=== PATIENT | female | born 1975 | race Caucasian/White ===

== ENCOUNTER 2018-09-16 18:32 | Observation (INO) ==
--- NOTE | 2018-09-16 20:39 | Emergency Department Note ---
Disposition Clinical Impression: Intractable seizure disorder Disposition: Admitted As Inpatient Referrals: NONE,PCP [Primary Care Provider] - Time of Disposition: 20:39 General Adult HPI - General Chief complaint: ED Seizure Stated complaint: uncontrolled muscle movements? Time Seen by Provider: 09/16/18 19:15 Source: patient, family Limitations: altered mental status Nursing Notes Reviewed: Yes Vital Signs Reviewed: Yes - History of Present Illness HPI Narrative: Attestation note: Patient was seen with the emergency medicine resident/nurse practitioner/physician surgical assistant certified/transitional resident/medical student: Dr. SHEELA MONTAÑO. I was present for the significant portions of the performance and interpretation of procedures and EKGs. I have personally performed a face to face evaluation on this patient. I have reviewed and agree with history and physical examination patient management and disposition. 3-year-old female had a history of AVM with coiling ever since she has had seizures which is controlled with medication which she normally lifts her arm and shakes the family were so she has been doing that "all day" which is unusual she was seen at an outside facility I think [facility] was given Ativan and sent home. Patient arrives what appears to be postictal she supposed to have an MRI tomorrow. Patient will undergo laboratory testing a CT scan and patient will be admitted with neurologic consultation here for further evaluation and management of this seizure disorder. Pain Scale: 10 - Related Data Home Medications Medication Instructions Recorded Confirmed LevETIRAcetam [Keppra] 750 mg PO BID 09/05/15 08/18/18 Lexapro 20 mg PO QDPC 09/05/15 08/18/18 Butalbital/Acetaminophen 1 tab PO Q12H 10/02/17 08/18/18 Tizanidine HCl [Zanaflex] 1 cap PO HS 10/02/17 08/18/18 traZODone [TraZODone] 50 mg PO HS 10/02/17 08/18/18 LORazepam [Ativan] 1 mg PO DAILY PRN 08/04/18 08/18/18 Loratadine [Claritin] 10 mg PO DAILY 08/04/18 08/18/18 Allergies Allergy/AdvReac Type Severity Reaction Status Date / Time Amoxicillin Allergy Diarrhea Verified 08/18/18 15:49 acetaminophen [From NyQuil] AdvReac See Verified 08/18/18 15:49 Comments dextromethorphan AdvReac See Verified 08/18/18 15:49 [From NyQuil] Comments doxylamine [From NyQuil] AdvReac See Verified 08/18/18 15:49 Comments pseudoephedrine [From NyQuil] AdvReac See Verified 08/18/18 15:49 Comments IV dye Allergy Hives Uncoded 08/18/18 15:49 Past Medical History - Past Medical History Medical history: Reports: no medical history Surgical history: Reports: no surgical history Psychiatric history: Reports: no psych history FIELD [employer] RESEARCHER history: Reports: no FIELD [employer] RESEARCHER history - Social History Smoking Status: Current every day smoker Smokeless Tobacco Status: No Alcohol use: Reports: none Drug use: Reports: none Course Vital Signs Temperature 98.3 F 09/16/18 18:45 Pulse Rate 85 09/16/18 18:45 Respiratory Rate 16 09/16/18 18:45 Blood Pressure 109/71 09/16/18 18:45 O2 Sat by Pulse Oximetry 96 09/16/18 18:45 Temperature 98.3 F 09/16/18 18:45 Pulse Rate 85 09/16/18 18:45 Respiratory Rate 16 09/16/18 18:45 Blood Pressure 109/71 09/16/18 18:45 O2 Sat by Pulse Oximetry 96 09/16/18 18:45 Oxygen Delivery Oxygen Delivery Room Air
[2018-09-16 20:53] LABS: Basophils % 0.4 %; Eosinophils # 0.1 K/mcL (0.0-0.6); Eosinophils % 0.6 %; Hematocrit 39.9 % (35.3-44.9); Hemoglobin 12.6 g/dL (11.5-15.4); Immature Granulocytes % 0.4 % (0-4); Lymphocytes # 3.1 K/mcL (0.6-4.6); Lymphocytes % 37.3 %; Mean Corpuscular HGB Conc 31.6 g/dL (31.6-35.5); Mean Corpuscular Hemoglobin 26.5 pg (28.0-33.3); Mean Platelet Volume 9.5 fL (9.4-12.4); Monocytes # 0.3 K/mcL (0.0-1.3); Monocytes % 3.6 %; Neutrophils # 4.8 K/mcL (1.6-8.9); Platelet Count 249 K/mcL (140-400); Red Blood Count 4.75 M/mcL (3.82-4.97); Red Cell Distribution Width 14.2 % (11.5-14.5); Segmented Neutrophils % 57.7 %; White Blood Count 8.3 K/mcL (4.3-11.1)
[2018-09-16 20:54] LABS: Bilirubin,Urine Negative (Negative); Blood,Urine Negative (Negative); Clarity,Urine Clear (Clear); Color,Urine Yellow (Yellow); Glucose,Urine (UA) Normal (Normal); Ketones,Urine Negative (Negative); Leukocyte Esterase,Urine Negative (Negative); Nitrite,Urine Negative (Negative); PH,Urine 6.5 pH Units (5.0-8.0); Protein,Urine Negative (Neg-Trace); Specific Gravity,Urine 1.011 (1.010-1.025); Urobilinogen,Urine Normal (Normal)
[2018-09-16 21:12] LABS: BUN/Creatinine Ratio 4 (6-26); Blood Urea Nitrogen 4 mg/dL (6-20); Calcium 9.1 mg/dL (8.6-10.3); Carbon Dioxide 27 mEq/L (23-29); Chloride 110 mEq/L (98-107); Glucose 96 mg/dL (70-105); Osmolality,Calculated 287 (280-300); Potassium 3.5 mEq/L (3.5-5.1); Sodium 140 mEq/L (136-145); eGFR For African Americans > 60 (> 60); eGFR For Non-African Americans > 60 (> 60)
--- NOTE | 2018-09-16 22:20 | Emergency Department Note ---
Disposition Clinical Impression: Intractable seizure disorder Disposition: Admitted As Inpatient Condition: Fair Time of Disposition: 22:56 Seizure HPI - General Chief Complaint: ED Seizure Stated Complaint: uncontrolled muscle movements? Time Seen by Provider: 09/16/18 19:15 Source: patient, family Limitations: altered mental status - History of Present Illness HPI Narrative: 43-year-old female past medical history of atrial venous malformation repaired in [address] Restrepo at [facility] with long-standing seizure disorder presenting for one day of intractable focal seizures involving the head neck and right upper extremity. Patient's and [id number] are bedside states patient has had constant complex focal seizures throughout the day has been seen at [facility] where she was Keppra loaded and given Ativan and discharged home. Patient's family states that she continued to seize while at home and came here for further evaluation and management. The patient is sleeping upon my inspection family states that she has been postictal for approximately 20-30 minutes. Since arriving to the ER. Patient is alert and oriented to verbal stimuli however appears tired. There are no lateralizing signs, noncyanotic nondiaphoretic patient is no acute distress she is engaged conversation and answer questions appropriately. Pt Subjective Complaint: seizure Onset (ago): day(s) Witnessed: yes - by bystander Associated trauma secondary to event: No Seizure History: known seizure disorder Place: home Possible Precipitating Event: none Associated symptoms: Reports: weakness - Related Data Home Medications Medication Instructions Recorded Confirmed Tizanidine HCl [Zanaflex] 1 cap PO HS 10/02/17 09/16/18 traZODone [TraZODone] 50 mg PO HS 10/02/17 09/16/18 Loratadine [Claritin] 10 mg PO DAILY 08/04/18 09/16/18 Acetaminophen/Butalbital/Caffe 1 each PO Q12HR PRN 09/16/18 09/16/18 [Fioricet] Escitalopram [Lexapro] 20 mg PO DAILY 09/16/18 09/16/18 Klonopin PO BID 09/16/18 LevETIRAcetam [Keppra] 1,000 mg PO BID 09/16/18 09/16/18 Allergies Allergy/AdvReac Type Severity Reaction Status Date / Time Amoxicillin Allergy Diarrhea Verified 08/18/18 15:49 acetaminophen [From NyQuil] AdvReac See Verified 08/18/18 15:49 Comments dextromethorphan AdvReac See Verified 08/18/18 15:49 [From NyQuil] Comments doxylamine [From NyQuil] AdvReac See Verified 08/18/18 15:49 Comments pseudoephedrine [From NyQuil] AdvReac See Verified 08/18/18 15:49 Comments IV dye Allergy Hives Uncoded 08/18/18 15:49 Review of Systems: *See History of Present Illness for more detail Constitutional: Denies: fever, chills Cardiovascular: Denies: chest pain Respiratory: Denies: dyspnea, cough, hemoptysis Gastrointestinal: Denies: abdominal pain, nausea, vomiting, diarrhea, constipation, hematemesis, melena, hematochezia Genitourinary: Denies: hematuria Musculoskeletal: Denies: back pain, neck pain Neurological: Admits to headache, weakness, lightheadedness and dizziness. Denies: numbness, paresthesias, difficulty with ambulation. Endocrine: Admits: fatigue All systems ED: reviewed and negative except as stated. Review of Systems: As Per HPI Past Medical History - Past Medical History Medical history: Reports: no medical history Surgical history: Reports: no surgical history Psychiatric history: Reports: no psych history [employer]WORK ENGINEER history: Reports: no [employer] SAL[employer]WORK ENGINEER history - Social History Smoking Status: Current every day smoker Smokeless Tobacco Status: No Alcohol use: Reports: none Drug use: Reports: none Physical Exam Constitutional: Patient states to be in mild distress due to post ictal period. She is alert to verbal stimuli engageable to conversation, speech is fluid, answers questions appropriately Neuro: GCS 15, CN II-XII are grossly intact, reflexes 2/4 in bilateral upper and lower extremities, strength 5/5 in bilateral upper and lower extremities Head: Atraumatic, normocephalic Eyes: Pupils equal, round and reactive to light, external ocular muscles intact, no scleral icterus, no conjunctival injection, no nystagmus. Mouth: Mucous membranes are moist, oropharynx is without edema, erythema, or exudate. No tongue swelling, lip swelling, perioral cyanosis, drooling, or trismus. Neck: Trachea midline without deviation. Anterior neck is supple without swelling, no lymphadenopathy or thyromegaly noted. Chest: Symmetric chest wall rise Heart: Cardiac rhythm and rate are regular with S1 and S2 , no S3 or S4 appreciated, no murmurs, rubs, or clicks. Lungs: Lungs are clear to auscultation bilaterally, without accessory muscle use or prolonged expiratory phase. No wheezes or stridor appreciated. Abdomen: Abdomen is flat, soft to palpation, normal bowel sounds, no evidence of bruising, surgical incisions, or abnormal mass. No abdominal bruit auscultated. Non-distended, non-rigid, no organomegaly, no ascites appreciated. No pulsatile mass, no tenderness or guarding to palpation, no rebound Extremities: No pedal edema, joint swelling or erythema. Pulses/motor intact in all 4 extremities. Psychiatric exam: Patient displays a normal affect and mood for the environment. No overt signs of hallucination. Integumentary: warm, dry, intact, normal color. No rash, cyanosis, diaphoresis, erythema, or pallor - General Limitations: no limitations General appearance: alert, in no apparent distress Course Course Narrative: CT scan of the head and neck, basic labs [facility] - Reevaluation(s) Reevaluation #1: Spoke with Dr. Núñez from neurology who agrees with our plan to admit patient to hospitalist medicine service for further evaluation and management of breakthrough seizures. Neurology consulted and is following. No further rec ommendations at this time. Consultation greatly appreciated. Vital Signs Temperature 98.3 F 09/16/18 18:45 Pulse Rate 85 09/16/18 18:45 Respiratory Rate 16 09/16/18 18:45 Blood Pressure 109/71 09/16/18 18:45 O2 Sat by Pulse Oximetry 96 09/16/18 18:45 Temperature 98.3 F 09/16/18 21:00 Pulse Rate 85 09/16/18 21:00 Respiratory Rate 16 09/16/18 21:00 Blood Pressure 109/71 09/16/18 21:00 O2 Sat by Pulse Oximetry 96 09/16/18 21:00 Oxygen Delivery Oxygen Delivery Room Air Seizure - MDM Narrative Medical decision making narrative: Laboratory and imaging results show no acute pathology. Patient be admitted to hospital medicine service for their evaluation and management of seizures. - Lab Data Lab results reviewed: Yes I reviewed the patient's lab results. Result diagrams: 09/16/18 20:41 09/16/18 20:41 Lab Results 0709/16/18 09/16/18 Range/Units 20:35 20:41 20:41 WBC 8.3 (4.3-11.1) K/mcL RBC 4.75 (3.82-4.97) M/mcL Hgb 12.6 (11.5-15.4) g/dL Hct 39.9 (35.3-44.9) % MCV 84.0 (83.0-100.0) fL MCH 26.5 L (28.0-33.3) pg MCHC 31.6 (31.6-35.5) g/dL RDW 14.2 (11.5-14.5) % Plt Count 249 (140-400) K/mcL MPV 9.5 (9.4-12.4) fL Immature Gran % 0.4 (0-4) % Seg Neutrophils % 57.7 % Lymphocytes % 37.3 % Monocytes % 3.6 % Eosinophils % 0.6 % Basophils % 0.4 % Neutrophils # 4.8 (1.6-8.9) K/mcL Lymphocytes # 3.1 (0.6-4.6) K/mcL Monocytes # 0.3 (0.0-1.3) K/mcL Eosinophils # 0.1 (0.0-0.6) K/mcL Basophils # 0.0 (0.0-0.2) K/mcL Sodium 140 (136-145) mEq/L Potassium 3.5 (3.5-5.1) mEq/L Chloride 110 H (98-107) mEq/L Carbon Dioxide 27 (23-29) mEq/L BUN 4 L (6-20) mg/dL Creatinine 0.99 (0.60-1.20) mg/dL Est GFR ( Amer) > 60 (> 60) Est GFR (Non-Af Amer) > 60 (> 60) BUN/Creatinine Ratio 4 L (6-26) Glucose 96 (70-105) mg/dL Calculated Osmolality 287 (280-300) Calcium 9.1 (8.6-10.3) mg/dL Urine Color Yellow (Yellow) Urine Clarity Clear (Clear) Urine pH 6.5 (5.0-8.0) pH Units Ur Specific [place] 1.011 (1.010-1.025) Urine Protein Negative (Neg-Trace) mg/dL Urine Glucose (UA) Normal (Normal) mg/dL Urine Ketones Negative (Negative) mg/dL Urine Blood Negative (Negative) Urine Nitrite Negative (Negative) Urine Bilirubin Negative (Negative) Urine Urobilinogen Normal (Normal) mg/dL Ur Leukocyte Esterase Negative (Negative) Ur Culture Indicated? NO (NO) Levetiracetam (6 - 46) mcg/mL 09/16/18 Range/Units 20:41 WBC (4.3-11.1) K/mcL RBC (3.82-4.97) M/mcL Hgb (11.5-15.4) g/dL Hct (35.3-44.9) % MCV (83.0-100.0) fL MCH (28.0-33.3) pg MCHC (31.6-35.5) g/dL RDW (11.5-14.5) % Plt Count (140-400) K/mcL MPV (9.4-12.4) fL Immature Gran % (0-4) % Seg Neutrophils % % Lymphocytes % % Monocytes % % Eosinophils % % Basophils % % Neutrophils # (1.6-8.9) K/mcL Lymphocytes # (0.6-4.6) K/mcL Monocytes # (0.0-1.3) K/mcL Eosinophils # (0.0-0.6) K/mcL Basophils # (0.0-0.2) K/mcL Sodium (136-145) mEq/L Potassium (3.5-5.1) mEq/L Chloride (98-107) mEq/L Carbon Dioxide (23-29) mEq/L BUN (6-20) mg/dL Creatinine (0.60-1.20) mg/dL Est GFR ( Amer) (> 60) Est GFR (Non-Af Amer) (> 60) BUN/Creatinine Ratio (6-26) Glucose (70-105) mg/dL Calculated Osmolality (280-300) Calcium (8.6-10.3) mg/dL Urine Color (Yellow) Urine Clarity (Clear) Urine pH (5.0-8.0) pH Units Ur Specific [place] (1.010-1.025) Urine Protein (Neg-Trace) mg/dL Urine Glucose (UA) (Normal) mg/dL Urine Ketones (Negative) mg/dL Urine Blood (Negative) Urine Nitrite (Negative) Urine Bilirubin (Negative) Urine Urobilinogen (Normal) mg/dL Ur Leukocyte Esterase (Negative) Ur Culture Indicated? (NO) Levetiracetam 69 H (6 - 46) mcg/mL
[2018-09-17] MEDS ORDERED: Naloxone 0.4 MG/ML INJ IVP PRN (01:21)
[2018-09-17] MEDS ORDERED: *HR* LORazepam 2 MG/ML VIAL IVP PRN (01:21)
[2018-09-17] MEDS ORDERED: Acetaminophen/Butalbital/CaffeineTABLET PO PRN (01:28)
[2018-09-17] MEDS ORDERED: 0.9 % Sodium Chloride w KCl 20 MEQ/1,000 ML MLS IVC SCH (01:30)
--- NOTE | 2018-09-17 02:06 | Internal Med History&Physical ---
Date of Encounter: 09/17/18 Time of Encounter: 01:00 Internal Medicine - H&P: HPI Chief complaint: seizure Admitted From: Emergency Dept Plans for Post Hospital Care: Home History of present illness: Ms. Sandoval is a 43 year old female [facility] with complaints of several breakthrough seizures today. This apparently was witnessed by her family members. She was therefore brought to ER where she was noted to be postictal. Workup was unremarkable. Patient was therefore admitted to hospitalist service with neurology consultation. Upon my assessment of the patient, patient is alert and coherent. She does not appear to be postictal at this time. No family members are present at the bedside. Patient has a history of brain AVMs requiring neurosurgical intervention about 6 years ago. Since then, she was doing well until about 2 months ago when she developed seizures. She describes her seizures as focal seizures, and she denies any history of generalized tonic-clonic activity. However, she does not recall today's events and was reportedly somnolent and postictal. She did have a recent EEG just last week. She is due to have an outpatient MRI in the near future. She does have a history of anxiety and is on multiple anxiety medications including trazodone, which can possibly lower seizure threshold. She denies any fevers, chills, night sweats, coughing, shortness of breath, d ysuria, or abdominal pain. During my exam, I noted that she is pleasant, in no distress, and exhibits no neurologic deficits during the interview. However, during the exam and asking her to sit up, she developed some shaking of her head and torso. After lying her back down in her bed, this shaking stopped. I questioned her about the shaking activity, and she states "I get that after every seizure". Past Med Surg Social Fam HX - Past Medical History Attestation: Yes The following information was validated with the patient. Source: patient, old records reviewed Medical history: seizures Additional medical history: AVM Psychiatric history: no psych history - Past Surgical History Surgical History: cholecystectomy Additional surgical history: TUBAL LIGATION, , B/L BREAST BX, Neurosurgery for brain AVM - Social History Smoking Status: Current every day smoker Packs per day: < 1/2 Smokeless Tobacco Status: No Alcohol use: none Drug use: none Current living situation: Home, With Family Recent Out of Country Travel Within the Last 8 Weeks: No - Family History Mother Living Status: Age at : 61 Cause of : COPD Hx Family Cardiac Disorders: Yes (IA) Hx Family Respiratory Disorders: Yes (COPD) Father Living Status: Still Living Hx Family Musculoskeletal Disorders: Yes (BACK PAIN) Sister Living Status: Still Living Hx Family Endocrine Disorder: Yes (TYPE I DM) Internal Medicine - H&P: Meds Tizanidine HCl [Zanaflex] 1 cap PO HS 10/02/17 [History] traZODone [TraZODone] 50 mg PO HS 10/02/17 [History] Loratadine [Claritin] 10 mg PO DAILY 08/04/18 [History] Acetaminophen/Butalbital/Caffe [Fioricet] 1 each PO Q12HR PRN 09/16/18 [History] Escitalopram [Lexapro] 20 mg PO DAILY 09/16/18 [History] Klonopin PO BID 09/16/18 [History] LevETIRAcetam [Keppra] 1,000 mg PO BID 09/16/18 [History] Allergy/AdvReac Type Severity Reaction Status Date / Time Amoxicillin Allergy Diarrhea Verified 08/18/18 15:49 acetaminophen [From NyQuil] AdvReac See Verified 08/18/18 15:49 Comments dextromethorphan AdvReac See Verified 08/18/18 15:49 [From NyQuil] Comments doxylamine [From NyQuil] AdvReac See Verified 08/18/18 15:49 Comments pseudoephedrine [From NyQuil] AdvReac See Verified 08/18/18 15:49 Comments IV dye Allergy Hives Uncoded 08/18/18 15:49 - Constitutional Constitutional: no chills, no fever(s), no night sweats - EENT Eyes: no blurry vision, no change in vision Ears: no ear pain, no tinnitus Nose, mouth and throat: no nasal congestion, no sinus pressure, no sore throat - Cardiovascular Cardiovascular ROS IM: no chest pain, no dyspnea, no dyspnea on exertion, no orthopnea, no palpitations - Respiratory Respiratory: no cough, no chest congestion, no excessive phlegm production - Gastrointestinal Gastrointestinal: no abdominal pain, no cramping, no hematemesis, no hematochezia, no melena, no nausea, no vomiting - Genitourinary Genitourinary: no dysuria, no flank pain, no hematuria - Musculoskeletal Musculoskeletal ROS IM: no arthralgias, no back pain - Integumentary Integumentary IM: no rash, no jaundice - Neurological Neurological ROS: convulsions, headache(s) (migraine), no dizziness, no focal weakness, no frequent falls - Psychiatric Psychiatric: no anxiety, no depression - Endocrine Endocrine IM: no cold intolerance, no heat intolerance, no polydipsia, no polyphagia, no polyuria - Allergic/Immunologic Allergic/Immunologic: no wheezing, no GI upset with certain foods - Constitutional Vitals: Temp Pulse Resp BP Pulse Ox 98.1 F 67 17 100/64 97 09/17/18 00:16 09/17/18 00:16 09/17/18 00:16 09/17/18 00:16 09/17/18 00:46 General appearance: Present: cooperative, A&O X 3, pleasant, no acute distress Exam: see below - Head Head exam: Present: atraumatic, normal inspection - Eye Eye exam: Present: EOMI, PERRL. Absent: scleral icterus Pupils: Present: normal accommodation - ENT ENT exam: Present: mucous membranes dry, normal exam, normal oropharynx Additional comments: poor dentition - Neck Neck exam general surgery: Present: full ROM, supple, trachea midline. Absent: lymphadenopathy, tenderness, nuchal rigidity, thyromegaly - Respiratory Respiratory exam: Present: CTAB. Absent: chest wall tenderness, rales, rhonchi, wheezes - Cardiovascular Cardiovascular exam: Present: RRR, +S1, +S2. Absent: diastolic murmur, systolic murmur - GI/Abdominal GI/Abdominal exam: Present: normal bowel sounds, soft. Absent: guarding, hepatomegaly, mass, rebound, splenomegaly, tenderness - Extremities Exam Extremities exam: Present: full ROM, normal capillary refill - Back Exam Back exam: Absent: CVA tenderness (L), CVA tenderness (R) - Neurological Exam Neurological exam: Present: alert, CN II-XII intact, oriented X3, no focal deficits, strengths equal and symetr throughout. Absent: motor sensory deficit - Psychiatric Psychiatric exam: Present: normal affect, normal mood - Skin Skin exam: Present: dry, intact, warm Internal Med - H&P Results - Labs CBC & Chem 7: 09/16/18 20:41 09/16/18 20:41 Labs: Short CBC 09/16/18 Range/Units 20:41 WBC 8.3 (4.3-11.1) K/mcL Hgb 12.6 (11.5-15.4) g/dL Hct 39.9 (35.3-44.9) % Plt Count 249 (140-400) K/mcL Neutrophils # 4.8 (1.6-8.9) K/mcL BMP 09/16/18 20:41 Sodium 140 Potassium 3.5 Chloride 110 H Carbon Dioxide 27 BUN 4 L Creatinine 0.99 Glucose 96 Calcium 9.1 Urine 09/16/18 Range/Units 20:35 Urine Color Yellow (Yellow) Urine Clarity Clear (Clear) Urine pH 6.5 (5.0-8.0) pH Units Ur Specific [place] 1.011 (1.010-1.025) Urine Protein Negative (Neg-Trace) mg/dL Urine Glucose (UA) Normal (Normal) mg/dL - Impressions ITS Impressions Head CT 09/16/18 20:08 IMPRESSION: No acute intracranial abnormality. 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 D/ / Conrad Anthony MD / Conrad Anthony MD Interpreting Provider: Conrad Anthony MD - Diagnostic Studies CT scan - head Status: image reviewed by me (encephalomalacia) - Assessment and Plan (1) Intractable seizure disorder Current Visit: Yes Status: Acute Assessment and plan: 1. Continue home dose of Keppra. 2. Seizure precautions. 3. Ativan IV ordered PRN for seizure activity. 4. Consult Neurology. 5. Order MRI brain. 6. If above negative, patient may need psychiatry consult given her history of anxiety/depression (2) Anxiety Current Visit: Yes Status: Chronic Assessment and plan: 1. Continue home meds as appropriate. 2 Hold trazadone as this may lowe seizure threshold. 3. May need psychiatry consultation to assist with medication changes. (3) AVM (arteriovenous malformation) brain Current Visit: Yes Status: Chronic Assessment and plan: 1. MRI ordered to assess intracranial anatomy. 2. S/P neurosurgery 6 years ago. (4) DVT prophylaxis Current Visit: Yes Status: Acute Assessment and plan: . Heparin SQ.
[2018-09-17] MEDS: levETIRAcetam 250 MG TABLET PO SCH ×3 (02:10→20:40)
[2018-09-17 04:19] LABS: Basophils % 0.4 %; Eosinophils # 0.1 K/mcL (0.0-0.6); Eosinophils % 0.9 %; Hematocrit 35.7 % (35.3-44.9); Hemoglobin 11.3 g/dL (11.5-15.4); Immature Granulocytes % 0.1 % (0-4); Lymphocytes # 2.7 K/mcL (0.6-4.6); Lymphocytes % 40.9 %; Mean Corpuscular HGB Conc 31.7 g/dL (31.6-35.5); Mean Corpuscular Hemoglobin 26.7 pg (28.0-33.3); Mean Corpuscular Volume 84.2 fL (83.0-100.0); Mean Platelet Volume 9.7 fL (9.4-12.4); Monocytes # 0.4 K/mcL (0.0-1.3); Monocytes % 5.8 %; Neutrophils # 3.5 K/mcL (1.6-8.9); Platelet Count 217 K/mcL (140-400); Red Blood Count 4.24 M/mcL (3.82-4.97); Red Cell Distribution Width 14.3 % (11.5-14.5); Segmented Neutrophils % 51.9 %; White Blood Count 6.7 K/mcL (4.3-11.1)
[2018-09-17 04:29] LABS: INR 1.2
[2018-09-17 04:31] LABS: Activated Partial Thrombo Time 31.5 Seconds (26.0-36.0)
[2018-09-17 04:41] LABS: Alanine Aminotransferase 7 Units/L (7-52); Albumin 3.6 g/dL (3.5-5.7); Albumin/Globulin Ratio 1.6 (1.1-2.2); Alkaline Phosphatase 69 Units/L (34-104); Aspartate Amino Transferase 11 Units/L (13-39); BUN/Creatinine Ratio 7 (6-26); Bilirubin,Total 0.4 mg/dL (0.3-1.0); Blood Urea Nitrogen 6 mg/dL (6-20); Calcium 8.5 mg/dL (8.6-10.3); Carbon Dioxide 25 mEq/L (23-29); Chloride 111 mEq/L (98-107); Globulin 2.2 g/dL (2.4-3.5); Glucose 87 mg/dL (70-105); Magnesium 1.7 mg/dL (1.6-2.6); Osmolality,Calculated 287 (280-300); Potassium 3.4 mEq/L (3.5-5.1); Sodium 140 mEq/L (136-145); Total Protein 5.8 g/dL (6.4-8.9); eGFR For African Americans > 60 (> 60); eGFR For Non-African Americans > 60 (> 60)
[2018-09-17] MEDS: *HR* Heparin 5,000 UNIT/ML VIAL SQ SCH ×2 (06:29→18:24)
--- NOTE | 2018-09-17 09:24 | Neurology - Consult Note ---
<Manuel Rowley - Last Filed: 09/17/18 09:15> Date of Encounter: 09/17/18 Time of Encounter: 09:15 Assessment and Plan (1) Intractable seizure disorder Current Visit: Yes Status: Acute Neurology has been consulted with concern for intractable seizure disorder The patient has been having a 2 month history of head tremors as well as right a rm and leg tremors which have been getting progressively worse History significant for AVM which she has had neurosurgical intervention approximately 6 years ago. Has been seizure-free since intervention until 2 months ago Was recently seen in the office by Dr. Kebede in the clinic to evaluate for stiffness and tightness of the right side of the body- EEG completed did not reveal seizure activity She has had multiple ED visits for the same Today she the head tremors and rt arm/leg tremors persist. Otherwise, she has a non-focal exam Keppra level was supratherapeutic at 69; no need to change Her dose at this time continue at 1000 mg by mouth twice a day Etiology of these events are unclear; we are recommending transfer to [facility] to the EMU unit for long-term monitoring Neurology will continue to f/u with patient while she remains at [facility] Otherwise c/w medical and supportive care Agree with seizure precautions and PRN ativan History of Present Illness Chief complaint: Seizures;? Tremors HPI: Ms. Sandoval is a 43 year old female with a PMH of AVM and seizures. Neurology has been consulted to evaluate for breakthrough seizures. The patient presented to the ED with concerns for as she states "jerking and muscle tightening of my head and right arm and leg ". She denies any aggravating or alleviating factors. She reports that this is been ongoing for approximately 2 months and getting worse. She notes that she has a history of AVMs requiring neurosurgery approximately 6 years ago. She has been stable since surgery and has not had any seizure activity until approximately 2 months ago. Currently she is on 1000 mg of by mouth Keppra twice a day and reports that this has been helping up until this point. She was seen on 09/15/[address] Kebede in the clinic and had a recent EEG which did not identify any epileptiform activity. Currently, she states that with the jerking occurs she is having blurry vision and begins to feel weak on the right side of her body. However, she denies any paresthesias, dysphagia, dysarthria, headaches, head or neck pain, fevers, chills, disequilibrium, ataxia, chest pain or palpitations. The chemistry panel was reviewed and reveals a mild hypokalemia with a serum K of 3.4, otherwise no abnormalities. The CBC reveals a mild anemia with a HGB of 11.3. UA is clear. Keppra level is high at 69. Her head CT was negative for an acute intracranial abnormality. Past Med Surg Social Fam HX - Past Medical History Medical history: seizures Additional medical history: AVM Psychiatric history: no psych history - Past Surgical History Surgical History: cholecystectomy Additional surgical history: TUBAL LIGATION, , B/L BREAST BX, Neurosurgery for brain AVM - Social History Smoking Status: Current every day smoker Packs per day: < 1/2 Smokeless Tobacco Status: No Alcohol use: none Drug use: none - Family History Mother Living Status: Age at : 61 Cause of : COPD Hx Family Cardiac Disorders: Yes (SC) Hx Family Respiratory Disorders: Yes (COPD) Father Living Status: Still Living Hx Family Musculoskeletal Disorders: Yes (BACK PAIN) Sister Living Status: Still Living Hx Family Endocrine Disorder: Yes (TYPE I DM) Medications and Allergies Tizanidine HCl [Zanaflex] 1 cap PO HS 10/02/17 [History] Loratadine [Claritin] 10 mg PO DAILY 08/04/18 [History] Acetaminophen/Butalbital/Caffe [Fioricet] 1 each PO Q12HR PRN 09/16/18 [History] Escitalopram [Lexapro] 20 mg PO DAILY 09/16/18 [History] Klonopin PO BID 09/16/18 [History] LevETIRAcetam [Keppra] 1,000 mg PO BID 09/16/18 [History] clonazePAM [Klonopin] 0.5 mg PO BID tablet 09/17/18 [Rx] Allergy/AdvReac Type Severity Reaction Status Date / Time Amoxicillin Allergy Diarrhea Verified 08/18/18 15:49 acetaminophen [From NyQuil] AdvReac See Verified 08/18/18 15:49 Comments dextromethorphan AdvReac See Verified 08/18/18 15:49 [From NyQuil] Comments doxylamine [From NyQuil] AdvReac See Verified 08/18/18 15:49 Comments pseudoephedrine [From NyQuil] AdvReac See Verified 08/18/18 15:49 Comments IV dye Allergy Hives Uncoded 08/18/18 15:49 All Systems: The remainder of the systems were reviewed and are negative Review of Systems: REVIEW OF SYSTEMS GENERAL: Negative for any nausea, vomiting, fevers, chills NEUROLOGIC: Negative for facial asymmetry, dysphagia, dysarthria, hemiparesis, hemisensory deficits, vertigo, ataxia, paralysis, tingling, numbness, Positive- unilateral weakness of right arm and leg, reportin increasing seizure like activity and occasional blurred vision CARDIAC: Negative for any chest pain, dyspnea, peripheral edema or palpitations - denies urinary incontinence ENDOCRINE: negative Thyroid trouble, heat/cold intolerance, excessive sweating MUSCULOSKELETAL: positive - diminished strength of right arm and leg with a decreased activity tolerance d/t weakness Physical Examination - Vital Signs Vital Signs: Initial Vital Signs Temp Pulse Resp BP Pulse Ox 98.3 F 85 16 109/71 96 09/16/18 18:45 09/16/18 18:45 09/16/18 18:45 09/16/18 18:45 09/16/18 18:45 - Exam Exam: Examination: General Examination: *CONSTITUTIONAL: Alert and oriented x3, no acute distress *GENERAL APPEARANCE OF PATIENT appears healthy and well groomed *EYES: pupils equal, round, reactive to light and accommodation, conjunctiva clear without masses or ulcerations, fundi normal. *CARDIOVASCULAR: RRR, no peripheral edema, distal temperature normal, dorsalis pedis pulses normal. Refer to vital signs * MUSCULOSKELETAL: *GAIT AND STATION: normal, with normal Romberg testing, no abnormalities such as broad base gait or spasticity *ASSESSMENT OF MUSCLE STRENGTH IN THE UPPER AND LOWER EXTREMITIES bilateral deltoid, bicep, tricep, fish hatchery man strength, hip flexors ,anterior tibialis, dorsoflexion of the foot 5/5 *MUSCLE TONE IN THE UPPER AND LOWER EXTREMITIES normal without flaccid or rigid tone. Appears to have a yes she has had tremor and intermittent tremors in the right arm and leg which dissipate with ejection Neurological: *ORIENTATION to person, situation, time and place *LANGUAGE AND FUNCTION no significant aphasia or dysarthia was noted. *ATTENTION AND CONCENTRATION are normal *LANGUAGE FUNCTION no significant aphasia or dysarthia was noted. *FUND OF KNOWLEDGE aware of current events, past history, vocabulary *MENTAL attention span and concentration normal. *CN II optic fundi were normal, no papilledema noted. *CN III,IV, PERRLA extraocular eye movements were full, no nystagmus and no ptosis noted. *CN V shows normal sensation and jaw opens symmetrically. *CN VII shows normal facial movement symmetrically, upper and lower bilaterally. *CN VIII shows no significant hearing loss on exam *CN IX-Xpalate elevated symmetrically *CN XI normal strength in the sternocleidomastoid muscles, symmetrical shoulder shrugging. *CN XII tongue protruded in the midline, with normal strength and movement. *SENSORY EXAMINATION light touch intact *REFLEXES: deep tendon reflexes were normal and symmetrical , grade 2/4 diffusely, no pathological reflexes were noted. *CEREBELLAR TESTING normal finger to nose, heel/knee/mcpherson *PAIN LEVEL 0/10 Results - Laboratory Findings CBC and BMP: 09/17/18 03:27 09/17/18 03:27 Abnormal lab findings: Abnormal lab results Hgb 11.3 g/dL (11.5-15.4) L 09/17/18 03:27 MCH 26.7 pg (28.0-33.3) L 09/17/18 03:27 PT 14.0 Seconds (9.4-12.1) H 09/17/18 03:27 Potassium 3.4 mEq/L (3.5-5.1) L 09/17/18 03:27 Chloride 111 mEq/L (98-107) H 09/17/18 03:27 BUN 4 mg/dL (6-20) L 09/16/18 20:41 BUN/Creatinine Ratio 4 (6-26) L 09/16/18 20:41 Calcium 8.5 mg/dL (8.6-10.3) L 09/17/18 03:27 AST 11 Units/L (13-39) L 09/17/18 03:27 Serum Total Protein 5.8 g/dL (6.4-8.9) L 09/17/18 03:27 Globulin 2.2 g/dL (2.4-3.5) L 09/17/18 03:27 Levetiracetam 69 mcg/mL (6-46) H 09/16/18 20:41 - Diagnostic Findings Additional findings: CT/CT head/brain wo con IMPRESSION: No acute intracranial abnormality. 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 Consult Discharge Plan - Plan Referrals: Jose Kebede MD [Partnered Physician] - NONE,PCP [Primary Care Provider] - <Mike Núñez - Last Filed: 09/17/18 18:49> Date of Encounter: 09/17/18 Assessment and Plan (1) Intractable seizure disorder Current Visit: Yes Status: Acute I have personally performed a [id number] assessment of the patient and have reviewed the PA/FAMILY [employer] SOCIAL WORK PROFESSOR note. My impressions are as follows: The case was discussed with the SPECIAL PROCEDURES NURSE. I agree with his assessment and plan as stated above. Ultimately however, I am highly suspicious that these episodes are nonepileptic events. This is especially true since the events have not responded to Keppra which is a very potent antiepileptic, however seem to respond better to benzodiazepines. Also the semiology of these events does not seem to be consistent with a partial seizure. Her EEG has been normal, and there have been no changes in the MRI to which we might attribute any new area of seizure focus. The encephalomalacia is localized in the left occipital lobe, which would be expected to cause visual phenomena if this were indeed seizure activity. I would not expect motor spasms and jerking emanating from the occipital lobe. Ultimately I agree that transfer to an EMU was not necessary. When she was discharged from [facility] she was given a prescription of Ativan 20 pills. I suggested that she takes him 1 daily to see whether or not this further stops these events. This would be proven my opinion that the events or not likely epileptic but of some functional origin. Patient consist however that things are fine at home and she has no known source of anxiety or stress. She should follow up with Dr. Kebede about 2 weeks or so after discharge. He may discharge her at your discretion from a neurologic perspective. History of Present Illness HPI: Chart was reviewed, the patient was seen and examined independently. The case was discussed with the SPECIAL PROCEDURES NURSE as well as with Dr. Kebede. Patient states that she began experiencing spasms and "drawing" of the right face and right upper extremity about 2 months or so ago. She experiences right facial jerking and sometimes prolonged spasms of the right face. Spasms are variable in duration. Her was present states that they have lasted up to 1 hour. Although she does experience migraine headaches headache is not a part of the spasm. She denies any history of right Rivera's palsy. She denies any jerking of the right leg during the episodes. She does not seem to have altered level of consciousness during the episodes. She has been seen at various local emergency departments due to the symptoms. Most recently she was seen at [facility] where she was given Ativan and was discharged with a prescription for Ativan. She has not had any of the jerks today. She states that sometimes the jerks were occur for 2-3 days in succession multiple times per day and then they may go into remission for 3 days or so. Since the onset of the jerking episodes, she is never gone for more than 3 days without an episode. Of special note is that she is on Keppra 1000 mg twice a day and her Keppra level is supratherapeutic at 69. However the Ativan is what seems to have helped the episodes. She is also on Lexapro which was just increased a few days ago to 30 mg daily. And she is also on clonazepam. She has a known history of a left occipital AVM which was surgically removed in 2012. She denies any stress or domestic strife. She is also had an EEG completed as an outpatient and was interpreted as negative. Recent MRI only reveals the left occipital lobe encephalomalacia as a result of the surgical procedure. He reports a history of epilepsy as a child however other medication was apparently stopped at the age of 7. She has not had other episodes of seizure activity in the interim up until 2 months ago. All Systems: The remainder of the systems were reviewed and are negative Review of Systems: The balance of the systems review is negative. Physical Examination - Vital Signs Vital Signs: Initial Vital Signs Temp Pulse Resp BP Pulse Ox 98.3 F 85 16 109/71 96 09/16/18 18:45 09/16/18 18:45 09/16/18 18:45 09/16/18 18:45 09/16/18 18:45 - Exam Exam: I have personally performed a [id number] assessment of the patient and have reviewed the PA/FAMILY [employer]ELF[employer] SOCIAL WORK PROFESSOR note. My impressions are as follows: I agree with the neurologic examination as documented above. Results - Laboratory Findings CBC and BMP: 09/17/18 03:27 09/17/18 03:27 Abnormal lab findings: Abnormal lab results Hgb 11.3 g/dL (11.5-15.4) L 09/17/18 03:27 MCH 26.7 pg (28.0-33.3) L 09/17/18 03:27 PT 14.0 Seconds (9.4-12.1) H 09/17/18 03:27 Potassium 3.4 mEq/L (3.5-5.1) L 09/17/18 03:27 Chloride 111 mEq/L (98-107) H 09/17/18 03:27 BUN 4 mg/dL (6-20) L 09/16/18 20:41 BUN/Creatinine Ratio 4 (6-26) L 09/16/18 20:41 POC Glucose 122 mg/dL (70-99) H 09/17/18 15:33 Calcium 8.5 mg/dL (8.6-10.3) L 09/17/18 03:27 AST 11 Units/L (13-39) L 09/17/18 03:27 Serum Total Protein 5.8 g/dL (6.4-8.9) L 09/17/18 03:27 Globulin 2.2 g/dL (2.4-3.5) L 09/17/18 03:27 Levetiracetam 69 mcg/mL (6-46) H 09/16/18 20:41
[2018-09-17] MEDS ORDERED: Gadolinium Contrast Agent (WT Based) IV PRN ×2 (09:26→10:49)
[2018-09-17] MEDS: Loratadine 10 MG TABLET PO SCH (09:31)
[2018-09-17] MEDS: clonazePAM 0.5 MG TABLET PO SCH ×2 (12:42→20:40)
--- NOTE | 2018-09-17 13:43 | Discharge Summary ---
<Laura Dominguez I - Last Filed: 09/17/18 14:20> Orders not resulted at time of discharge: Pending orders 09/17/18 01:21 ECG 12 lead ECG [ECG] Routine 09/17/18 10:49 MR head wo/w con [MR] Stat Date of Encounter: 09/17/18 Time of Encounter: 09:35 - Discharge Diagnosis (1) Intractable seizure disorder Priority: Primary Status: Acute (2) AVM (arteriovenous malformation) brain Priority: Secondary Status: Chronic (3) Anxiety Priority: Secondary Status: Chronic Hospital course: Ms. Sandoval is a 43 year old female with pmh of AVM repaired in 2012 presented to ER yesterday after seizure attack that was focal and involve head neck and upper extrimity , it last for 5 mins as she states it was "jerking and muscle tightening of my head and right arm and leg ". She denies any aggravating or alleviating factors. She had post ictal confusion and blurry vision and weakness . Patient has a history of brain AVMs requiring neurosurgical intervention about 6 years ago. Since then, she was doing well until about 2 months ago when she developed seizures. She describes her seizures as focal seizures, and she denies any history of generalized tonic-clonic activity.Today she had again tremors of head and rt arm/leg tremors persist. Otherwise, she has a non-focal exam. She denies any fevers, chills, night sweats, coughing, shortness of breath, dysuria, or abdominal pain. head CT and brain MRI was negative for any acute findings , The chemistry panel was reviewed and reveals a mild hypokalemia with a serum K of 3.4, otherwise no abnormalities. The CBC reveals a mild anemia with a HGB of 11.3. UA is clear. .Etiology of these events are unclear, and Neurology is recommending transfer to [facility] to the EMU unit for long-term monitoring . patient has new clonazepam 0.5 mg PO BID . patient is stable and understand the treatment and plan . - Time Spent with Patient Total time spent providing and/or coordinating discharge services: - Discharge Medications Prescriptions: New clonazePAM [Klonopin] 0.5 mg PO BID tablet Continued Tizanidine HCl [Zanaflex] 1 cap PO HS Loratadine [Claritin] 10 mg PO DAILY Acetaminophen/Butalbital/Caffe [Fioricet] 1 each PO Q12HR PRN PRN Reason: Headache LevETIRAcetam [Keppra] 1,000 mg PO BID Escitalopram [Lexapro] 20 mg PO DAILY Klonopin PO BID Discontinued traZODone [TraZODone] 50 mg PO HS Home Medications: Tizanidine HCl [Zanaflex] 1 cap PO HS 10/02/17 [History] Loratadine [Claritin] 10 mg PO DAILY 08/04/18 [History] Acetaminophen/Butalbital/Caffe [Fioricet] 1 each PO Q12HR PRN 09/16/18 [History] Escitalopram [Lexapro] 20 mg PO DAILY 09/16/18 [History] Klonopin PO BID 09/16/18 [History] LevETIRAcetam [Keppra] 1,000 mg PO BID 09/16/18 [History] clonazePAM [Klonopin] 0.5 mg PO BID tablet 09/17/18 [Rx] Allergies/Adverse Reactions: Allergy/AdvReac Type Severity Reaction Status Date / Time Amoxicillin Allergy Diarrhea Verified 08/18/18 15:49 acetaminophen [From NyQuil] AdvReac See Verified 08/18/18 15:49 Comments dextromethorphan AdvReac See Verified 08/18/18 15:49 [From NyQuil] Comments doxylamine [From NyQuil] AdvReac See Verified 08/18/18 15:49 Comments pseudoephedrine [From NyQuil] AdvReac See Verified 08/18/18 15:49 Comments IV dye Allergy Hives Uncoded 08/18/18 15:49 Date of admission: 09/16/18 22:42 Primary care physician: PCP NONE Consults: 09/16/18 22:47 Consult to Neurology [CONS] Stat Consulting Provider: Neurology [facility] Reason for Consult: Seizure Time Notified: 22:47 Call Completed: Yes Anticipated date of discharge: 09/17/18 - Constitutional Vitals: Temp Pulse Resp BP Pulse Ox 98.2 F 87 16 97/69 97 09/17/18 11:13 09/17/18 11:13 09/17/18 11:13 09/17/18 11:13 09/17/18 03:41 General appearance: Present: cooperative, A&O X 3, pleasant, no acute distress Exam: . - Head Head exam: Present: atraumatic, normal inspection - Eye Eye exam: Present: EOMI, normal appearance, PERRL - Neck Neck exam general surgery: Present: full ROM, normal inspection, trachea midline - Respiratory Respiratory exam: Present: CTAB - Cardiovascular Cardiovascular exam: Present: RRR, +S1, +S2 - GI/Abdominal GI/Abdominal exam: Present: normal bowel sounds, soft - Extremities Exam Extremities exam: Present: full ROM, normal inspection - Neurological Exam Neurological exam: Present: alert, oriented X3, no focal deficits - Psychiatric Psychiatric exam: Present: normal affect, normal mood - Patient Status Disposition: Transfer Critical Access Hosp Condition: Fair Functional capacity at discharge: independent ambulation Overall status at discharge: patient is not back to baseline - Discharge Instructions Follow Up With: NONE,PCP [Primary Care Provider] - Jose Kebede MD [Partnered Physician] - - Diet and Activity Activity: as per physical therapy, increase activity as tolerated Diet: advance to your usual diet <Maki Ceja - Last Filed: 09/17/18 14:52> - NOTES TO OUTPATIENT PROVIDER Notes to Outpatient Provider: transferred to [place] for continuous EEG monitoring with breakthrough seizures Orders not resulted at time of discharge: Pending orders 09/17/18 01:21 ECG 12 lead ECG [ECG] Routine Date of Encounter: 09/17/18 - Discharge Diagnosis (1) AVM (arteriovenous malformation) brain Priority: Secondary Status: Chronic (2) Intractable seizure disorder Priority: Primary Status: Acute (3) Anxiety Priority: Secondary Status: Chronic (4) DVT prophylaxis Priority: Secondary Status: Acute Hospital course: Ms. Sandoval is a 43 year old female - Time Spent with Patient Total time spent providing and/or coordinating discharge services: Date of admission: 09/16/18 22:42 Primary care physician: PCP NONE Consults: 09/16/18 22:47 Consult to Neurology [CONS] Stat Consulting Provider: Neurology [facility] Reason for Consult: Seizure Time Notified: 22:47 Call Completed: Yes Discharging clinician: Laura Dominguez - Constitutional Vitals: Temp Pulse Resp BP Pulse Ox 98.2 F 87 16 97/69 97 09/17/18 11:13 07/24/19 11:13 09/17/18 11:13 09/17/18 11:13 09/17/18 03:41 - Patient Status Functional capacity at discharge: independent ambulation Overall status at discharge: patient is not back to baseline - Diet and Activity Activity: as per physical therapy, increase activity as tolerated Diet: advance to your usual diet - Attending Attestation I examined this patient and my medical decision-making was reviewed with the Resident Physician Dr Dominguez. I agree with the documented findings, disposition and treatment plan as described except to the extent set forth below. Ms Sandoval was being observed for breakthrough seizures with known hx of seizures and brain AVM s/p surgery in remote past. She has had 2 month history of head tremors as well as right arm and leg tremors which have been getting progressively worse. she had been seizure free since surgical intervention until two months ago. She is following with Neurology at [facility] Dr Kebede. She was admitted with seziure like activity at home. MRI here negative. Neurology recommendation for transfer to acute care access hospital with continuous EEG monitoring. awake, cont head and ext tremor. She admits to headache and blurred vision. She notes these sxs usually resolve after hours post ictally and this duration of sxs is abnormal for her. She feels at her baseline level of alertness. She is agreeable to Neuro recommendations. gen- alert, awake,appears stated age eyes- pupils equal round cv- reg rate and rhythm, normal s1,s2, no murmurs appreciated lungs- ctabl, no wheezing, rhonchi or crackles, normal resp effort on room air abd- soft, non tender, non distended, + bs neuro- AAOx3, CN grossly intact, resting head/neck and UEs tremor, strength 5/5 throughout, sensation intact to light touch throughout Breakthrough Seziures with known seizure d/o and hx AVM s/p neurosurg intervention approx 6 years ago- CT head no acute findings, MRI head no acute findings, continued on home keppra dosing, holding trazadone, cont home low dose klonopin, appreciate Neurology input and facilitate transfer to OSH w continuous EEG monitoring Anxiety- cont home celexa and klopopin (klonopin is NOT a new med) time spent on dc 50 min
--- NOTE | 2018-09-17 15:45 | Electrocardiograph Report ---
[address] [address] Test Date: 2018-09-17 Pat Name: Stew Sandoval Department: 111 Room: [facility] Gender: F Instruction Dean: : 1975 Requested By: Dalton Lee Order Number: [id number] Reading MD: Adonay Hernandez Measurements Intervals [place] Rate: 69 P: 66 OR: 192 QRS: 53 QRSD: 81 T: 38 QT: 383 QTc: 401 Interpretive Statements SINUS RHYTHM WITH SINUS ARRHYTHMIA Electronically Signed On 09-17-2018 15:43:52 EDT by Adonay Hernandez
--- NOTE | 2018-09-17 17:32 | Internal Med Progress Note ---
<Laura Dominguez I - Last Filed: 09/17/18 17:24> Hospitalist Progress Note - Encounter Date of Encounter: 09/17/18 Time of Encounter: 08:45 - Subjective Interval History: Ms. Sandoval is a 43 year old female with pmh of AVM repaired in 2012 presented to ER yesterday after seizure attack that was focal and involve head neck and upper extrimity , it last for 5 mins as she states it was "jerking and muscle tightening of my head and right arm . today patient is more alert and oriented she still has headache at the back of her head and she is little tired but denies nausea vomiting chest pain or SOB denies any change in bowel motion or urination . she said she had head and right extrimity tremor today as well - Exam Vitals: Temp Pulse Resp BP Pulse Ox 98.2 F 84 16 106/73 97 09/17/18 15:29 09/17/18 15:29 09/17/18 15:29 09/17/18 15:29 09/17/18 03:41 Exam: . General: no acute distress , A&AX3 HEENT: Atraumatic, Normocephaly, sclera unicteric Neck: supple , Full ROM , trachea midline Cardiac: RRR , S1+. S2+ Lungs: Normal Breath Sounds Bilaterally, No Wheeze, Rales, Rhonchi Nuero : alert and oriented X3, normal gait , no focal deficit , muscle strength 5/5 through the extrimities , intact sensation throughout Abdomen: Soft, Non-Tender ,no organomegaly , +bowel sounds Extremities: No Clubbing, No Cyanosis,or edema , Normal Pulses Skin : intact , Normal color Psychiatric : normal affect, normal mood - Assessment and Plan (1) Intractable seizure disorder Current Visit: Yes Status: Acute Assessment and Plan: -Patient has continuos seizure attacks for the last 2 months with head tremors as well as right arm and leg tremors which have been getting progressively worse -she had AVM which she has had neurosurgical intervention approximately 6 years ago. Has been seizure-free since intervention until 2 months ago - the etiology is not clear yet , there is no signs of infection -CTand MRI of brain was ordered and is negative for any acute abnormality -UN is clear -CBC within normal limits -Agree with seizure precautions and PRN ativan - Nuerology was consulted and they recommend to be transferred to have her on continuos EEG monitoring - she is now on 1000 LEVITIRACETAM po BID and klonopin0.5 mg BID po and we held her trazodone waiting for further Neuro recommendations (2) AVM (arteriovenous malformation) brain Current Visit: Yes Status: Chronic Assessment and Plan: this is a chronic condition AVM repaired in 2012 she was doing ok for 6 years till 2 months ago when she start to have continues seizure attacks again plan as above for seizure (3) Anxiety Current Visit: Yes Status: Chronic Assessment and Plan: this is achronic condition . continue home medication DVT Prophylaxis: subQ heparin - Time Spent with Patient Total time spent is greater than 50% in coordination of care (as documented) at patient's floor/unit and/or counseling patient: Internal Medicine: Result - Labs CBC & Chem 7: 09/17/18 03:27 09/17/18 03:27 Labs: Short CBC 09/16/18 09/17/18 Range/Units 20:41 03:27 WBC 8.3 6.7 (4.3-11.1) K/mcL Hgb 12.6 11.3 L (11.5-15.4) g/dL Hct 39.9 35.7 (35.3-44.9) % Plt Count 249 217 (140-400) K/mcL Neutrophils # 4.8 3.5 (1.6-8.9) K/mcL BMP 09/16/18 09/17/18 20:41 03:27 Sodium 140 140 Potassium 3.5 3.4 L Chloride 110 H 111 H Carbon Dioxide 27 25 BUN 4 L 6 Creatinine 0.99 0.87 Glucose 96 87 Calcium 9.1 8.5 L Liver Function 09/17/18 Range/Units 03:27 Total Bilirubin 0.4 (0.3-1.0) mg/dL AST 11 L (13-39) Units/L ALT 7 (7-52) Units/L Alkaline Phosphatase 69 (34-104) Units/L Albumin 3.6 (3.5-5.7) g/dL Urine 09/16/18 Range/Units 20:35 Urine Color Yellow (Yellow) Urine Clarity Clear (Clear) Urine pH 6.5 (5.0-8.0) pH Units Ur Specific [place] 1.011 (1.010-1.025) Urine Protein Negative (Neg-Trace) mg/dL Urine Glucose (UA) Normal (Normal) mg/dL - ABG Interpretation ABG results: PT/INR, D-dimer PT 14.0 Seconds (9.4-12.1) H 09/17/18 03:27 - Impressions Impressions Head CT 09/16/18 20:08 IMPRESSION: No acute intracranial abnormality. 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 D/ / Conrad Anthony MD / Conrad Anthony MD Interpreting Provider: Conrad Anthony MD Head MRI 09/17/18 10:49 IMPRESSION: Stable left occipital lobe encephalomalacia at site of previous known AVM No evidence of acute intracranial abnormality or mesial temporal sclerosis D/ / Terrance Piña MD / Terrance Piña MD Interpreting Provider: Terrance Piña MD Consult Discharge Plan - Plan Referrals: Jose Kebede MD [Partnered Physician] - NONE,PCP [Primary Care Provider] - <Maki Ceja - Last Filed: 09/18/18 07:43> Hospitalist Progress Note - Encounter Date of Encounter: 09/18/18 - Exam Vitals: Temp Pulse Resp BP Pulse Ox 98.0 F 69 14 94/60 97 09/18/18 07:11 09/18/18 07:11 09/18/18 07:11 09/18/18 07:11 09/18/18 07:11 - Assessment and Plan (1) AVM (arteriovenous malformation) brain Current Visit: Yes Status: Chronic (2) Intractable seizure disorder Current Visit: Yes Status: Acute (3) Anxiety Current Visit: Yes Status: Chronic (4) DVT prophylaxis Current Visit: Yes Status: Acute - Time Spent with Patient Total time spent is greater than 50% in coordination of care (as documented) at patient's floor/unit and/or counseling patient: Internal Medicine: Result - Labs CBC & Chem 7: 09/18/18 05:04 09/18/18 05:04 Labs: Short CBC 09/18/18 Range/Units 05:04 WBC 7.6 (4.3-11.1) K/mcL Hgb 11.8 (11.5-15.4) g/dL Hct 36.9 (35.3-44.9) % Plt Count 226 (140-400) K/mcL Neutrophils # 4.1 (1.6-8.9) K/mcL BMP 09/18/18 05:04 Sodium 142 Potassium 3.8 Chloride 102 Carbon Dioxide 27 BUN 8 Creatinine 1.02 Glucose 79 Calcium 9.1 - ABG Interpretation ABG results: PT/INR, D-dimer PT 12.6 Seconds (9.4-12.1) H 09/18/18 05:04 - Impressions Impressions Head MRI 09/17/18 10:49 IMPRESSION: Stable left occipital lobe encephalomalacia at site of previous known AVM No evidence of acute intracranial abnormality or mesial temporal sclerosis D/ / Terrance Piña MD / Terrance Piña MD Interpreting Provider: Terrance Piña MD - Attending Attestation I examined this patient and my medical decision-making was reviewed with the Resident Physician Dr Dominguez. I agree with the documented findings, disposition and treatment plan as described except to the extent set forth below. Ms Sandoval was being observed for breakthrough seizures with known hx of seizures and brain AVM s/p surgery in remote past. She has had 2 month history of head tremors as well as right arm and leg tremors which have been getting progressively worse. she had been seizure free since surgical intervention until two months ago. She is following with Neurology at [place] Dr Kebede. She was admitted with seziure like activity at home. MRI here negative. Neurology recommendation for transfer to acute care access hospital with continuous EEG m onitoring. awake, cont head and ext tremor. She admits to headache and blurred vision. She notes these sxs usually resolve after hours post ictally and this duration of sxs is abnormal for her. She feels at her baseline level of alertness. She is agreeable to Neuro recommendations. gen- alert, awake,appears stated age eyes- pupils equal round cv- reg rate and rhythm, normal s1,s2, no murmurs appreciated lungs- ctabl, no wheezing, rhonchi or crackles, normal resp effort on room air abd- soft, non tender, non distended, + bs neuro- AAOx3, CN grossly intact, resting head/neck and UEs tremor, strength 5/5 throughout, sensation intact to light touch throughout Breakthrough Seizures with known seizure d/o and hx AVM s/p neurosurg intervention approx 6 years ago- CT head no acute findings, MRI head no acute findings, continued on home keppra dosing, holding trazadone, cont home low dose klonopin, appreciate Neurology input and recommended facilitate transfer to [facility] for cont EEG monitoring, HOWEVER, [facility] rec changes. -Neuro team and pt updated, will await neuro attending eval and further recs. Anxiety- cont home celexa and klopopin (klonopin is NOT a new med)
[2018-09-17] MEDS ORDERED: tiZANidine 4 MG TABLET PO SCH (21:00)
[2018-09-18 05:57] LABS: Basophils % 0.5 %; Eosinophils # 0.1 K/mcL (0.0-0.6); Eosinophils % 0.9 %; Hematocrit 36.9 % (35.3-44.9); Hemoglobin 11.8 g/dL (11.5-15.4); Immature Granulocytes % 0.3 % (0-4); Lymphocytes # 3.1 K/mcL (0.6-4.6); Lymphocytes % 40.3 %; Mean Corpuscular Hemoglobin 26.4 pg (28.0-33.3); Mean Corpuscular Volume 82.6 fL (83.0-100.0); Mean Platelet Volume 9.7 fL (9.4-12.4); Monocytes # 0.4 K/mcL (0.0-1.3); Neutrophils # 4.1 K/mcL (1.6-8.9); Platelet Count 226 K/mcL (140-400); Red Blood Count 4.47 M/mcL (3.82-4.97); Red Cell Distribution Width 14.2 % (11.5-14.5); White Blood Count 7.6 K/mcL (4.3-11.1)
[2018-09-18 06:07] LABS: INR 1.1; Prothrombin Time 12.6 Seconds (9.4-12.1)
[2018-09-18 06:15] LABS: BUN/Creatinine Ratio 8 (6-26); Blood Urea Nitrogen 8 mg/dL (6-20); Calcium 9.1 mg/dL (8.6-10.3); Carbon Dioxide 27 mEq/L (23-29); Chloride 102 mEq/L (98-107); Glucose 79 mg/dL (70-105); Osmolality,Calculated 291 (280-300); Potassium 3.8 mEq/L (3.5-5.1); Sodium 142 mEq/L (136-145); eGFR For African Americans > 60 (> 60); eGFR For Non-African Americans 59 (> 60)
[2018-09-18] MEDS: *HR* Heparin 5,000 UNIT/ML VIAL SQ SCH (06:55)
[2018-09-18 07:13] VITALS: BP 94/60
[2018-09-18] MEDS ORDERED: Acetaminophen 325 MG TABLET PO PRN (08:21)
[2018-09-18] MEDS: Loratadine 10 MG TABLET PO SCH (08:22)
[2018-09-18] MEDS: clonazePAM 0.5 MG TABLET PO SCH (08:23)
[2018-09-18] MEDS: levETIRAcetam 250 MG TABLET PO SCH (08:23)
--- NOTE | 2018-09-18 10:29 | Neurology Progress Note ---
Date of Encounter: 09/18/18 Time of Encounter: 10:27 Assessment and Plan (1) Intractable seizure disorder Current Visit: Yes Status: Acute The patient was seen in follow-up today for right facial jerking and right arm spasms the SC has had tremors as well as intermittent right arm tremors. She reports that her symptoms have subsided. MRI was completed and did not identify any new seizure focus but did identify encephalomalacia localized in the left lobe which does not correlate clinically. In addition to this she has undergone a recent EEG which has been negative for seizure activity. At this juncture do not feel that this is seizure activity and this is most likely nonepileptic events. Continue with Her at her current dose. I do agree with increasing her Klonopin to 3 times a day as there is likely an underlying anxiety component contributing to the nonepileptic seizure events. Neurology will sign off at this time. Please call should any urgent needs arise. She is okay to discharge from neurology's perspective at the discretion of the primary team. Subjective Principal diagnosis: Concern for seizure-like activity Interval history: The patient is seen in follow-up for motor spasms and jerking of the head and right arm. Today she is resting comfortably in bed and reports that the spasms have ceased. She has had a recent EEG which was negative for seizure activity and MRI of the brain completed yesterday did not identify any new areas of seizure focus finding only encephalomalacia localized left occipital lobe which would not explain her motor symptoms. These findings were relayed to the patient and she reports that she is somewhat relieved of these findings. At this juncture I suspect these are most likely nonepileptic events and there is no need for medication changes. Objective - Constitutional Vitals: Temp Pulse Resp BP Pulse Ox 98.0 F 69 14 94/60 97 09/18/18 07:11 09/18/18 07:11 09/18/18 07:11 09/18/18 07:11 09/18/18 07:11 Exam: Examination: General Examination: *CONSTITUTIONAL: Alert and oriented x3, no acute distress *GENERAL APPEARANCE OF PATIENT 43-year-old female appears healthy and well groomed *EYES: pupils equal, round, reactive to light and accommodation, conjunctiva clear without masses or ulcerations, fundi normal. *CARDIOVASCULAR: no peripheral edema, distal temperature normal, dorsalis pedis pulses normal. Refer to vital signs * MUSCULOSKELETAL: *GAIT AND STATION: Deferred *ASSESSMENT OF MUSCLE STRENGTH IN THE UPPER AND LOWER EXTREMITIES b ilateral deltoid, bicep, tricep, apparel stock checker strength, hip flexors ,anterior tibialis, dorsoflexion of the foot 5/5 *MUSCLE TONE IN THE UPPER AND LOWER EXTREMITIES normal. Spasms entrails activity as ceased today. No abnormal movements, fasciculations or atrophy identified. Neurological: *ORIENTATION to person, situation, time and place *LANGUAGE AND FUNCTION no significant aphasia or dysarthia was noted. *ATTENTION AND CONCENTRATION are normal *LANGUAGE FUNCTION no significant aphasia or dysarthia was noted. *FUND OF KNOWLEDGE aware of current events, past history, vocabulary *MENTAL attention span and concentration normal. *CN II optic fundi were normal, no papilledema noted. *CN III,IV, PERRLA extraocular eye movements were full, no nystagmus and no ptosis noted. *CN V shows normal sensation and jaw opens symmetrically. *CN VII shows normal facial movement symmetrically, upper and lower bilaterally. *CN VIII shows no significant hearing loss on exam *CN IX-Xpalate elevated symmetrically *CN XI normal strength in the sternocleidomastoid muscles, symmetrical shoulder shrugging. *CN XII tongue protruded in the midline, with normal strength and movement. *SENSORY EXAMINATION light touch intact *REFLEXES: deep tendon reflexes were normal and symmetrical , grade 2/4 diffusely, no pathological reflexes were noted. *CEREBELLAR TESTING normal finger to nose, heel/knee/mcpherson *PAIN LEVEL 0/10 Results - Laboratory Findings CBC and BMP: 09/18/18 05:04 09/18/18 05:04 Abnormal lab findings: Abnormal lab results Hgb 11.3 g/dL (11.5-15.4) L 09/17/18 03:27 MCV 82.6 fL (83.0-100.0) L 09/18/18 05:04 MCH 26.4 pg (28.0-33.3) L 09/18/18 05:04 PT 12.6 Seconds (9.4-12.1) H 09/18/18 05:04 Potassium 3.4 mEq/L (3.5-5.1) L 09/17/18 03:27 Chloride 111 mEq/L (98-107) H 09/17/18 03:27 BUN 4 mg/dL (6-20) L 09/16/18 20:41 Est GFR (Non-Af Amer) 59 (> 60) L 09/18/18 05:04 BUN/Creatinine Ratio 4 (6-26) L 09/16/18 20:41 POC Glucose 122 mg/dL (70-99) H 09/17/18 15:33 Calcium 8.5 mg/dL (8.6-10.3) L 09/17/18 03:27 AST 11 Units/L (13-39) L 09/17/18 03:27 Serum Total Protein 5.8 g/dL (6.4-8.9) L 09/17/18 03:27 Globulin 2.2 g/dL (2.4-3.5) L 09/17/18 03:27 Levetiracetam 69 mcg/mL (6-46) H 09/16/18 20:41 Consult Discharge Plan - Plan Referrals: Jose Kebede MD [Partnered Physician] - NONE,PCP [Primary Care Provider] -
--- NOTE | 2018-09-18 10:43 | Discharge Summary ---
<Maki Ceja - Last Filed: 09/18/18 13:20> - NOTES TO OUTPATIENT PROVIDER Notes to Outpatient Provider: Evaluated by Dr Núñez while inpt and believes these muscle jerks/tremors are related to anxiety and not seizure activity. We have increased her home Klonopin as prescribed by her Neurologist (she was instructed to hold the ativan another hospital recently prescribed to her as her neurologist previously took her off ativan). No driving Date of Encounter: 09/18/18 - Discharge Diagnosis (1) AVM (arteriovenous malformation) brain Status: Chronic (2) Intractable seizure disorder Status: Acute (3) Anxiety Status: Chronic (4) DVT prophylaxis Priority: Secondary Status: Acute Hospital course: Ms. Sandoval is a 43 year old female - Time Spent with Patient Total time spent providing and/or coordinating discharge services: - Discharge Medications Prescriptions: New clonazePAM [Klonopin] 0.5 mg PO TID 14 Days #42 tablet Continued Tizanidine HCl [Zanaflex] 2 mg PO HS Loratadine [Claritin] 10 mg PO DAILY Acetaminophen/Butalbital/Caffe [Fioricet] 1 each PO Q12HR PRN PRN Reason: Headache LevETIRAcetam [Keppra] 1,000 mg PO BID Escitalopram [Lexapro] 20 mg PO DAILY traZODone [TraZODone] 50 mg PO HS Discontinued traZODone [TraZODone] 50 mg PO HS clonazePAM [Klonopin] 0.5 mg PO BID #0 LORazepam [Ativan] 1 mg PO PRN PRN PRN Reason: SIMPLE PARTIAL SEIZURES Home Medications: Tizanidine HCl [Zanaflex] 2 mg PO HS 10/02/17 [History] Loratadine [Claritin] 10 mg PO DAILY 08/04/18 [History] Acetaminophen/Butalbital/Caffe [Fioricet] 1 each PO Q12HR PRN 09/16/18 [History] Escitalopram [Lexapro] 20 mg PO DAILY 09/16/18 [History] LevETIRAcetam [Keppra] 1,000 mg PO BID 09/16/18 [History] clonazePAM [Klonopin] 0.5 mg PO TID 14 Days #42 tablet 09/18/18 [Rx] traZODone [TraZODone] 50 mg PO HS 09/18/18 [History] Allergies/Adverse Reactions: Allergy/AdvReac Type Severity Reaction Status Date / Time Amoxicillin Allergy Diarrhea Verified 09/18/18 12:03 acetaminophen [From NyQuil] AdvReac Rash Verified 09/18/18 12:03 dextromethorphan AdvReac Rash Verified 09/18/18 12:03 [From NyQuil] doxylamine [From NyQuil] AdvReac Rash Verified 09/18/18 12:03 pseudoephedrine [From NyQuil] AdvReac Rash Verified 09/18/18 12:03 IV dye Allergy Hives Uncoded 09/18/18 12:03 Date of admission: 09/16/18 22:42 Primary care physician: PCP NONE Consults: 09/16/18 22:47 Consult to Neurology [CONS] Stat Consulting Provider: Neurology [facility] Reason for Consult: Seizure Time Notified: 22:47 Call Completed: Yes - Constitutional Vitals: Temp Pulse Resp BP Pulse Ox 98.0 F 69 14 94/60 97 09/18/18 07:11 09/18/18 07:11 09/18/18 07:11 09/18/18 07:11 09/18/18 07:11 - Patient Status Disposition: Home, Self-Care Condition: Good - Discharge Instructions Instructions: Clonazepam (By mouth), Anxiety (DC) Follow Up With: Justa Orellana CNP [Advanced Practice Nurse] - 09/19/18 2:30 pm Jose Kebede MD [Partnered Physician] - (Referral sent should contact within week) Additional Instructions: -Take Klonopin and dont take Ativan as the other hospital prescribed . -Klonopin is 0.5 mg 3 times aday for 14 days then follow up with Dr. Kebede for medication refill -take all other your home medication -no driving due to seizure - Attending Attestation I examined this patient and my medical decision-making was reviewed with the Resident Physician Dr Dominguez. I agree with the documented findings, disposition and treatment plan as described except to the extent set forth below. Ms Sandoval was being observed for possible breakthrough seizures with known hx of seizures and brain AVM s/p surgery in remote past. Initially she was to be transferred to [facility] for cont EEG monitoring as per the rec of her outpt neuro, but after further review of her case they declined transfer. Neurology attending rounding this week evaluated inpt and felt tremors/muscle jerks were not seizure activity but rather related to anxiety and home benzo was adjusted. She is dc ot home in stable condition awake, no tremors, feeling baseline. no visual disturbance. mild headache last night. no complaints.eager for dc to home. discharge plan discussed in detail and all questions answered. gen- alert, awake,appears stated age cv- reg rate and rhythm, normal s1,s2 lungs- ctabl neuro- AAOx3, CN grossly intact, strength 5/5 throughout, no muscle jerks or tremors Possible Breakthrough Seizures with known seizure d/o, but more likely muscle jerks/tremors related to anxiety as per Neuro eval - CT head no acute findings, MRI head no acute findings, continued on home keppra dosing, oncreased home klonopin to 0.5 mg TID, fu with established neuro in 2 weeks, no driving Anxiety- cont home celexa and klopopin (pt was prescribed ativan by another hospital, she was not taking it as she was previously on ativan and Dr Kebede changed her to klonopin) dc to home time spent on dc 35 min <Laura Dominguez I - Last Filed: 09/18/18 14:17> - NOTES TO OUTPATIENT PROVIDER Notes to Outpatient Provider: Miss sandoval s a known case of AVM corrected 6 years ago and she was free from seizures till 2 months ago . Patient is discharged home on her home medication plus we incraesed the klonopin to TID instead of BID and followup with Yandy Portillo for medication refill . Date of Encounter: 09/18/18 Time of Encounter: 08:15 - Discharge Diagnosis (1) Intractable seizure disorder Priority: Primary Status: Acute (2) AVM (arteriovenous malformation) brain Priority: Secondary Status: Chronic (3) Anxiety Priority: Secondary Status: Chronic Hospital course: Ms. Sandoval is a 43 year old female with a known history of AVM corrected in 2012 , she start to have seizures attacks 2 months ago , Patient states that she began experiencing spasms and "drawing" of the right face and right upper extremity about 2 months or so ago. she was admitted to ER due to these symptoms Recent MRI only reveals the left occipital lobe encephalomalacia as a result of the surgical procedure and did not identify any new seizure focus, CT head no acute finding In addition to this she has undergone a recent EEG which has been negative for seizure activity , her Labs were all normal . Neurology was consulted and suspect these are most likely nonepileptic events however they recommend transfer her to [facility] for [facility] but [facility] refuse transfer and recommend medication changes Ultimately the neurologist agree that transfer to an EMU was not necessary. . Now patient is doing well she has not had any of the jerky movements today , denies fever , chest pain , SOB , change in bowel habits or urination , she is able to eat and walk . she only has headaches and take tylenol for that . Patient is discharged home on her home medication plus we incraesed the klonopin to TID instead of BID and followup with Yandy Portillo is adviced in 2 weeks for medication refill and instructed to not take Ativan and dont drive due to seizure . patient is stable and seems understand the treatment and plan . - Time Spent with Patient Total time spent providing and/or coordinating discharge services: Date of admission: 09/16/18 22:42 Primary care physician: PCP NONE Consults: 09/16/18 22:47 Consult to Neurology [CONS] Stat Consulting Provider: Neurology [facility] Reason for Consult: Seizure Time Notified: 22:47 Call Completed: Yes Discharging clinician: Maki Ceja Anticipated date of discharge: 09/18/18 - Constitutional Vitals: Temp Pulse Resp BP Pulse Ox 98.0 F 69 14 94/60 97 09/18/18 07:11 09/18/18 07:11 09/18/18 07:11 09/18/18 07:11 09/18/18 07:11 General appearance: Present: cooperative, A&O X 3, pleasant, no acute distress Exam: . - Head Head exam: Present: atraumatic, normal inspection - Eye Eye exam: Present: EOMI, normal appearance - Neck Neck exam general surgery: Present: full ROM, normal inspection - Respiratory Respiratory exam: Present: CTAB - Cardiovascular Cardiovascular exam: Present: RRR, +S1, +S2 - GI/Abdominal GI/Abdominal exam: Present: normal bowel sounds, soft - Neurological Exam Neurological exam: Present: alert, normal gait, oriented X3 - Psychiatric Psychiatric exam: Present: normal affect, normal mood - Patient Status Functional capacity at discharge: independent ambulation Overall status at discharge: patient is back to baseline - Diet and Activity Activity: increase activity as tolerated Diet: advance to your usual diet
== END 2018-09-18 13:43 | disposition home or self-care (01) ==
LOC: EMEROOARM 18:32 → 2NENU 18:32 → SUATTDRO 22:42 → 2NENU 09-17 00:04
PROVIDERS: ADMIT Internal Medicine Nephrology; ATTEND Internal Medicine